=== PATIENT | male | born 1940 | race Two or more races ===

== ENCOUNTER 2023-05-14 13:36 | Inpatient (IN) | payer MEDICARE ==
[~2023-05-14] VITALS: Ht 190.5 cm; Wt 88.0 kg
[2023-05-14] MEDS ORDERED: LORAZEPAM 1 MG TABLET ONE (20:49)
[2023-05-14] MEDS ORDERED: LORAZEPAM 1 MG TABLET PO ONE (21:00)
[2023-05-14] MEDS ORDERED: ONDANSETRON HCL/PF 4 MG/2 ML VIAL ONE (21:07)
[2023-05-14 21:25] LABS: BASOPHILS % (AUTO) 0.3 % (0.0-2.0); EOSINOPHILS % (AUTO) 0.2 % (0.0-6.0); HEMATOCRIT 40 % (39-51); HEMOGLOBIN 13.1 g/dL (13.5-17.5); LYMPHOCYTES # (AUTO) 1.7 K/uL (0.8-4.8); LYMPHOCYTES % (AUTO) 23.9 % (20.0-44.0); MEAN CORPUSCULAR HEMOGLOBIN 36 PG (26.0-33.0); MEAN CORPUSCULAR HGB CONC 33 g/dl (31.0-36.0); MEAN CORPUSCULAR VOLUME 109 fL (80-96); MONOCYTES # (AUTO) 0.8 K/uL (0.1-1.30); MONOCYTES % (AUTO) 11.7 % (2.0-12.0); NEUTROPHILS # (AUTO) 4.5 K/uL (1.8-8.9); NEUTROPHILS % (AUTO) 63.9 % (43.0-81.0); PLATELET COUNT (AUTO) 149 K/uL (150-450); RED BLOOD CELL COUNT(AUTO) 3.64 MIL/uL (4.5-6.0); WHITE BLOOD COUNT (AUTO) 7.1 K/uL (4.3-11.0)
[2023-05-14] MEDS ORDERED: IV NS 0.9% 1,000 ML IV ONE (21:30)
[2023-05-14] MEDS ORDERED: LORAZEPAM INJ 2 MG/ML VIAL IV ONE (21:30)
[2023-05-14] MEDS ORDERED: ONDANSETRON HCL/PF - ER 4 MG/2 ML VIAL IV ONE (21:30)
[2023-05-14] MEDS ORDERED: LORAZEPAM INJ 2 MG/ML VIAL ONE (21:35)
[2023-05-14 21:38] LABS: CALCIUM, SERUM 8.6 mg/dL (8.5-10.1); CARBON DIOXIDE 21 mmol/L (21-32); CHLORIDE 97 mmol/L (98-107); CREATININE 0.8 mg/dL (0.6-1.3); GLUCOSE 77 mg/dL (74-106); POTASSIUM 3.7 mmol/L (3.5-5.1); SODIUM SERUM 142 mmol/L (136-145); UREA NITROGEN, BLOOD 17 mg/dL (7-18)
[2023-05-14 21:43] LABS: ALANINE AMINOTRANSFERASE 63 U/L (12-78); ALBUMIN 3.6 g/dL (3.4-5.0); ALCOHOL, BLOOD 220 mg/dL (0-10); ALKALINE PHOSPHATASE 56 U/L (46-116); ASPARTATE AMINOTRANSFERASE 150 U/L (15-37); BILIRUBIN,DIRECT 0.8 mg/dL (0.0-0.2); BILIRUBIN,TOTAL 1.5 mg/dL (0.2-1.0); TOTAL PROTEIN, SERUM 7.4 g/dL (6.4-8.2)
[2023-05-14] MEDS ORDERED: METOCLOPRAMIDE HCL 10 MG/2 ML VIAL ONE (21:48)
[2023-05-14 21:52] LABS: ACETAMINOPHEN <10 ug/ml (10-30); SALICYLATE 1.4 mg/dL (2.8-20.0)
[2023-05-14] MEDS ORDERED: CEFTRIAXONE 1GM BAG (ER ONLY) 50 ML IV ONE (21:55)
[2023-05-14] MEDS ORDERED: AZITHROMYCIN 500 MG VIAL ONE (21:56)
[2023-05-14] MEDS ORDERED: CEFTRIAXONE 1GM BAG (ER ONLY) 1 GM/50 ML PIGGYBACK IV ONE (22:00)
[2023-05-14] MEDS ORDERED: AZITHROMYCIN 500 MG in IV D5W 250 ML IV ONE (22:00)
[2023-05-14] MEDS ORDERED: METOCLOPRAMIDE HCL 10 MG/2 ML VIAL IV ONE (22:00)
[2023-05-14 22:14] LABS: EOSINOPHILS % (MANUAL) 1 % (0-4); LYMPHOCYTES % (MANUAL) 29 % (16-48); MONOCYTES % (MANUAL) 11 % (0-11.0); NEUTROPHILS % (MANUAL) 59 (42-76); PLATELET ESTIMATE ADEQUATE
[2023-05-14 23:10] LABS: APPEARANCE,URINE CLEAR (CLEAR); BILIRUBIN,URINE 1+ (NEGATIVE); BLOOD, URINE 2+ Ery/uL (NEGATIVE); COLOR,URINE YELLOW (YELLOW); KETONES,URINE 2+ mg/dL (NEGATIVE); LEUKOCYTE ESTERASE ,URINE NEGATIVE (NEGATIVE); NITRITE, URINE NEGATIVE (NEGATIVE); PROTEIN,URINE 3+ mg/dl (NEGATIVE); UGLUCOSE NEGATIVE (NEGATIVE)
[2023-05-14 23:17] LABS: RBC,URINE 21-50 /HPF (0-2); WBC,URINE 0-2 /HPF (0-3)
[2023-05-14 23:18] LABS: ADD URINE CULTURE NO; BACTERIA,URINE 1+ /HPF (None Seen); SQUAMOUS EPITHELIAL CELL,UR 0-2 /HPF (None Seen)
[2023-05-14 23:19] LABS: COARSE GRANULAR CASTS,URINE Rare /LPF (None Seen)
[2023-05-14 23:50] LABS: AMPHETAMINE, URINE NEGATIVE (NEGATIVE); BARBITURATE, URINE NEGATIVE (NEGATIVE); BENZODIAZEPINE, URINE NEGATIVE (NEGATIVE); CANNABINOID, URINE NEGATIVE (NEGATIVE); COCCAINE, URINE NEGATIVE (NEGATIVE); OPIATE, URINE NEGATIVE (NEGATIVE); PHENCYCLIDINE SCREEN,URINE NEGATIVE (NEGATIVE)
[2023-05-15] MEDS ORDERED: IV NS 0.9% 1,000 ML BAG IV ONE ×2 (06:30→09:30)
[2023-05-15] MEDS ORDERED: Thiamine 100 MG in IV D5W 50 ML IV ONE (08:00)
[2023-05-15] MEDS ORDERED: LORAZEPAM INJ 2 MG/ML VIAL IV ONE (08:00)
[2023-05-15] MEDS ORDERED: LORAZEPAM INJ 2 MG/ML VIAL ONE (08:25)
[2023-05-15] MEDS ORDERED: OCTREOTIDE 50 MCG/ML AMPUL IV ONE (08:30)
[2023-05-15] MEDS ORDERED: PANTOPRAZOLE 80 MG in IV NS 0.9% 100 ML IV ONE (08:30)
[2023-05-15] MEDS ORDERED: CLOP75TA15 PO (08:35)
[2023-05-15] MEDS ORDERED: SIMV-46 PO (08:35)
[2023-05-15] MEDS ORDERED: TAMS-12 PO (08:35)
[2023-05-15] MEDS ORDERED: AMLO-213 PO (08:35)
[2023-05-15] MEDS ORDERED: IV NS 0.9% 500 ML IV ONE ×2 (09:00→11:30)
[2023-05-15 09:15] LABS: INR 1.03 (0.91-1.10); PROTHROMBIN TIME 10.9 SECS (9.2-11.1)
[2023-05-15 09:22] LABS: LACTIC ACID 5.8 mmol/L (0.4-2.0)
[2023-05-15] MEDS ORDERED: PIPERACILLIN /TAZOBACTAM 3.375 G in IV D5W 50 ML IV ONE (09:30)
[2023-05-15] MEDS ORDERED: OCTREOTIDE 100 MCG/ML VIAL ONE (11:19)
[2023-05-15] MEDS ORDERED: ACETAMINOPHEN 325 MG TABLET PO PRN (13:30)
[2023-05-15] MEDS ORDERED: LORAZEPAM INJ 2 MG/ML VIAL IV PRN (13:30)
[2023-05-15] MEDS ORDERED: Folic acid 1 MG in IV D5W 50 ML IV SCH (14:00)
[2023-05-15] MEDS ORDERED: Thiamine 100 MG in IV D5W 50 ML IV SCH (14:00)
[2023-05-15] MEDS ORDERED: ONDANSETRON HCL/PF 4 MG/2 ML VIAL IV PRN (14:00)
[2023-05-15 16:00] VITALS: BP 105/81; TEMP 98.2; O2SAT 95
[2023-05-15] MEDS: PIPERACILLIN /TAZOBACTAM 3.375 G in IV D5W 100 ML IV SCH (17:07)
[2023-05-15] MEDS: SIMVASTATIN 20 MG TABLET PO SCH (17:10)
[2023-05-15] MEDS: METOPROLOL TARTRATE 25 MG TABLET PO SCH (17:10)
[2023-05-15] MEDS ORDERED: PIPERACILLIN /TAZOBACTAM 3.375 G in IV D5W 50 ML IV SCH (18:00)
[2023-05-15 20:00] VITALS: BP 120/80; TEMP 97.5; O2SAT 91
[2023-05-15] MEDS: IV D5/ 0.9% NACL 1,000 ML IV PRN (20:33)
[2023-05-16] VITALS: BP 102/77; TEMP 98.2; O2SAT 91
[2023-05-16] MEDS: PIPERACILLIN /TAZOBACTAM 3.375 G in IV D5W 100 ML IV SCH ×3 (00:56→17:46)
[2023-05-16 05:49] VITALS: BP 120/87; TEMP 98.6; O2SAT 92
[2023-05-16 07:18] LABS: BASOPHILS % (AUTO) 0.1 % (0.0-2.0); HEMATOCRIT 32 % (39-51); HEMOGLOBIN 10.8 g/dL (13.5-17.5); LYMPHOCYTES # (AUTO) 0.3 K/uL (0.8-4.8); LYMPHOCYTES % (AUTO) 2.1 % (20.0-44.0); MEAN CORPUSCULAR HEMOGLOBIN 36 PG (26.0-33.0); MEAN CORPUSCULAR HGB CONC 33 g/dl (31.0-36.0); MEAN CORPUSCULAR VOLUME 109 fL (80-96); MONOCYTES # (AUTO) 0.6 K/uL (0.1-1.30); MONOCYTES % (AUTO) 3.7 % (2.0-12.0); NEUTROPHILS # (AUTO) 15.9 K/uL (1.8-8.9); NEUTROPHILS % (AUTO) 94.1 % (43.0-81.0); PLATELET COUNT (AUTO) 93 K/uL (150-450); RED BLOOD CELL COUNT(AUTO) 2.97 MIL/uL (4.5-6.0); WHITE BLOOD COUNT (AUTO) 16.9 K/uL (4.3-11.0)
[2023-05-16 07:32] LABS: ALANINE AMINOTRANSFERASE 58 U/L (12-78); ALBUMIN 2.8 g/dL (3.4-5.0); ALKALINE PHOSPHATASE 33 U/L (46-116); ASPARTATE AMINOTRANSFERASE 146 U/L (15-37); BILIRUBIN,TOTAL 2.1 mg/dL (0.2-1.0); CALCIUM, SERUM 7.8 mg/dL (8.5-10.1); CARBON DIOXIDE 23 mmol/L (21-32); CHLORIDE 104 mmol/L (98-107); CREATININE 1.6 mg/dL (0.6-1.3); GLUCOSE 168 mg/dL (74-106); MAGNESIUM 1.3 mg/dL (1.8-2.4); POTASSIUM 3.9 mmol/L (3.5-5.1); SODIUM SERUM 145 mmol/L (136-145); TOTAL PROTEIN, SERUM 6.2 g/dL (6.4-8.2); UREA NITROGEN, BLOOD 39 mg/dL (7-18)
[2023-05-16 07:41] LABS: LACTIC ACID 3.3 mmol/L (0.4-2.0)
[2023-05-16 08:00] VITALS: BP 113/95; TEMP 98; O2SAT 92
[2023-05-16] MEDS: Magnesium 1GM/D5W 100ML PREMIX 100 ML IV SCH ×2 (08:21→09:43)
[2023-05-16] MEDS: TAMSULOSIN 0.4 MG CAP.SR.24H PO SCH (08:22)
[2023-05-16] MEDS: METOPROLOL TARTRATE 25 MG TABLET PO SCH ×2 (08:22→17:08)
[2023-05-16] MEDS: FAMOTIDINE (20 MG) 20 MG TABLET PO SCH (08:22)
[2023-05-16] MEDS: CLOPIDOGREL BISULFATE 75 MG TABLET PO SCH (08:22)
[2023-05-16] MEDS: ENOXAPARIN SODIUM 40 MG/0.4 ML DISP.SYRIN SQ SCH (08:26)
[2023-05-16 11:16] LABS: BAND % (MANUAL) 22 % (0.0-5.0); EOSINOPHILS % (MANUAL) 2 % (0-4); LYMPHOCYTES % (MANUAL) 1 % (16-48); METAMYELOCYTES % 1 % (0-0); MONOCYTES % (MANUAL) 1 % (0-11.0); NEUTROPHILS % (MANUAL) 73 (42-76)
[2023-05-16 11:17] LABS: PLATELET ESTIMATE DECREASED
[2023-05-16 12:00] VITALS: BP 116/80; TEMP 98.8; O2SAT 92
[2023-05-16] MEDS: THIAMINE HCL 100 MG TABLET PO SCH (13:15)
[2023-05-16] MEDS: FOLIC ACID 1 MG TABLET PO SCH (13:16)
[2023-05-16 16:00] VITALS: BP 145/98; TEMP 97.2; O2SAT 92
[2023-05-16] MEDS: IV D5/ 0.9% NACL 1,000 ML IV PRN (17:00)
[2023-05-16] MEDS: SIMVASTATIN 20 MG TABLET PO SCH (17:51)
[2023-05-16 20:00] VITALS: BP 133/92; TEMP 97.7; O2SAT 94
[2023-05-17] VITALS: BP 136/96; TEMP 97.7; O2SAT 94
[2023-05-17] MEDS: PIPERACILLIN /TAZOBACTAM 3.375 G in IV D5W 100 ML IV SCH ×3 (00:46→16:30)
[2023-05-17 04:00] VITALS: BP 148/101; TEMP 97.2; O2SAT 94
[2023-05-17 06:58] LABS: BASOPHILS % (AUTO) 0.2 % (0.0-2.0); HEMATOCRIT 33 % (39-51); HEMOGLOBIN 10.9 g/dL (13.5-17.5); LYMPHOCYTES # (AUTO) 0.4 K/uL (0.8-4.8); LYMPHOCYTES % (AUTO) 2.3 % (20.0-44.0); MEAN CORPUSCULAR HEMOGLOBIN 36 PG (26.0-33.0); MEAN CORPUSCULAR HGB CONC 33 g/dl (31.0-36.0); MEAN CORPUSCULAR VOLUME 109 fL (80-96); MONOCYTES # (AUTO) 0.7 K/uL (0.1-1.30); MONOCYTES % (AUTO) 3.7 % (2.0-12.0); NEUTROPHILS % (AUTO) 93.8 % (43.0-81.0); PLATELET COUNT (AUTO) 79 K/uL (150-450); RED CELL DISTRIBUTION WIDTH 18.2 % (11.5-15.0); WHITE BLOOD COUNT (AUTO) 19.2 K/uL (4.3-11.0)
[2023-05-17 07:12] LABS: CARBON DIOXIDE 28 mmol/L (21-32); CHLORIDE 109 mmol/L (98-107); CREATININE 1.1 mg/dL (0.6-1.3); GLUCOSE 158 mg/dL (74-106); POTASSIUM 3.4 mmol/L (3.5-5.1); SODIUM SERUM 147 mmol/L (136-145); UREA NITROGEN, BLOOD 31 mg/dL (7-18)
[2023-05-17 07:13] LABS: MAGNESIUM 1.7 mg/dL (1.8-2.4)
[2023-05-17 08:00] VITALS: BP 134/92; TEMP 99.1; O2SAT 99
[2023-05-17] MEDS ORDERED: POTASSIUM CHLORIDE 20 MEQ TAB.PRT.SR PO ONE (08:30)
[2023-05-17] MEDS: ENOXAPARIN SODIUM 40 MG/0.4 ML DISP.SYRIN SQ SCH (09:00)
[2023-05-17] MEDS: Magnesium 1GM/D5W 100ML PREMIX 100 ML IV SCH ×2 (09:29→12:08)
[2023-05-17] MEDS: TAMSULOSIN 0.4 MG CAP.SR.24H PO SCH (09:30)
[2023-05-17] MEDS: FAMOTIDINE (20 MG) 20 MG TABLET PO SCH (09:30)
[2023-05-17] MEDS: CLOPIDOGREL BISULFATE 75 MG TABLET PO SCH (09:31)
[2023-05-17] MEDS: METOPROLOL TARTRATE 25 MG TABLET PO SCH ×2 (09:32→16:34)
[2023-05-17] MEDS: Z GUARD REMEDY 4 OZ OINT TP SCH (10:00)
[2023-05-17] MEDS ORDERED: Z GUARD REMEDY 4 OZ OINT TP PRN (10:00)
[2023-05-17 11:24] LABS: BILIRUBIN,DIRECT 1.1 mg/dL (0.0-0.2)
[2023-05-17 12:00] VITALS: BP 147/107; TEMP 98.7; O2SAT 97
[2023-05-17] MEDS ORDERED: POTASSIUM CHLORIDE 20 MEQ POWDER PACKET PO ONE (12:00)
[2023-05-17] MEDS: IV D5/ 0.9% NACL 1,000 ML IV PRN (12:18)
[2023-05-17 12:22] LABS: BAND % (MANUAL) 1 % (0.0-5.0); LYMPHOCYTES % (MANUAL) 14 % (16-48); NEUTROPHILS % (MANUAL) 69 (42-76)
[2023-05-17 12:23] LABS: EOSINOPHILS % (MANUAL) 4 % (0-4); MONOCYTES % (MANUAL) 12 % (0-11.0)
[2023-05-17 12:24] LABS: PLATELET ESTIMATE ADEQUATE
[2023-05-17 16:00] VITALS: BP 136/97; TEMP 97.9; O2SAT 95
[2023-05-17] MEDS: THIAMINE HCL 100 MG TABLET PO SCH (16:30)
[2023-05-17] MEDS: FOLIC ACID 1 MG TABLET PO SCH (16:30)
[2023-05-17] MEDS: SIMVASTATIN 20 MG TABLET PO SCH (18:37)
[2023-05-17 22:00] VITALS: BP 128/78; TEMP 97.3; O2SAT 93
[2023-05-18] VITALS (77 sets, daily range): BP systolic 76–177; BP diastolic 56–129; TEMP 97.2–98.6; O2SAT 92–100
[2023-05-18] MEDS: PIPERACILLIN /TAZOBACTAM 3.375 G in IV D5W 100 ML IV SCH ×4 (01:02→16:06)
[2023-05-18] MEDS: PROPOFOL 100 ML IV PRN ×5 (04:27→22:24)
[2023-05-18] MEDS: IV D5/ 0.9% NACL 1,000 ML IV PRN ×2 (05:24→16:06)
[2023-05-18 05:25] LABS: ABG BASE EXCESS 2.2 mmol/L; ABG PCO2 51.9 mmHg (35.0-45.0); ABG PH 7.357 (7.350-7.450); ABG PO2 77.7 mmHg (75.0-100.0); ABG TOTAL HEMOGLOBIN 11.7 G/dL (13.5-18.0); AaDO2 583.4 mmHg; COHb 0.2 % (0.5-1.5); MetHb 0.1 % (0.0-1.5); O2Hb 94.7 % (94.0-97.0); PEEP,BG 5 cm H2O; SITE, ABG Right Brachial; VT, ABG 500 mL
[2023-05-18 05:35] LABS: CALCIUM, SERUM 8.3 mg/dL (8.5-10.1); CARBON DIOXIDE 26 mmol/L (21-32); CHLORIDE 111 mmol/L (98-107); CREATININE 0.9 mg/dL (0.6-1.3); GLUCOSE 173 mg/dL (74-106); MAGNESIUM 2.2 mg/dL (1.8-2.4); POTASSIUM 4.3 mmol/L (3.5-5.1); SODIUM SERUM 147 mmol/L (136-145); UREA NITROGEN, BLOOD 27 mg/dL (7-18)
[2023-05-18 05:44] LABS: BASOPHILS # (AUTO) 0.1 K/uL (0.0-0.2); BASOPHILS % (AUTO) 0.4 % (0.0-2.0); HEMATOCRIT 33 % (39-51); HEMOGLOBIN 10.7 g/dL (13.5-17.5); LYMPHOCYTES # (AUTO) 0.3 K/uL (0.8-4.8); LYMPHOCYTES % (AUTO) 1.5 % (20.0-44.0); MEAN CORPUSCULAR HEMOGLOBIN 36 PG (26.0-33.0); MEAN CORPUSCULAR HGB CONC 32 g/dl (31.0-36.0); MEAN CORPUSCULAR VOLUME 112 fL (80-96); MONOCYTES # (AUTO) 0.5 K/uL (0.1-1.30); MONOCYTES % (AUTO) 3.1 % (2.0-12.0); NEUTROPHILS # (AUTO) 16.7 K/uL (1.8-8.9); PLATELET COUNT (AUTO) 86 K/uL (150-450); RED BLOOD CELL COUNT(AUTO) 2.95 MIL/uL (4.5-6.0); WHITE BLOOD COUNT (AUTO) 17.6 K/uL (4.3-11.0)
[2023-05-18 06:50] LABS: BAND % (MANUAL) 1 % (0.0-5.0); LYMPHOCYTES % (MANUAL) 1 % (16-48); MONOCYTES % (MANUAL) 4 % (0-11.0); MYELOCYTES % 1 % (0-0); NEUTROPHILS % (MANUAL) 93 (42-76)
[2023-05-18 06:51] LABS: ANISOCYTOSIS 1+; PLATELET ESTIMATE DECREASED
[2023-05-18] MEDS ORDERED: NOREPINEPHRINE 8 MG in IV NS 0.9% 242 ML IV PRN (07:00)
[2023-05-18] MEDS: Z GUARD REMEDY 4 OZ OINT TP SCH (09:00)
[2023-05-18] MEDS: IPRATROPIUM NEB FS 0.5 MG/2.5 ML AMPUL.NEB NEB SCH ×3 (09:00→20:05)
[2023-05-18] MEDS: METOPROLOL TARTRATE 25 MG TABLET PO SCH ×2 (09:00→16:02)
[2023-05-18] MEDS ORDERED: JEVITY 1.2 CAL 1,000 ML BOTTLE GT PRN (09:30)
[2023-05-18] MEDS ORDERED: EPINEPHRINE (1:10,000) SYRINGE 1 MG/10 ML DISP.SYRIN IVP ONE (10:39)
[2023-05-18] MEDS: CLOPIDOGREL BISULFATE 75 MG TABLET PO SCH (14:51)
[2023-05-18] MEDS: FAMOTIDINE (20 MG) 20 MG TABLET PO SCH (14:51)
[2023-05-18] MEDS: FOLIC ACID 1 MG TABLET PO SCH (14:51)
[2023-05-18] MEDS: TAMSULOSIN 0.4 MG CAP.SR.24H PO SCH (14:51)
[2023-05-18] MEDS: THIAMINE HCL 100 MG TABLET PO SCH (14:51)
[2023-05-18] MEDS: SIMVASTATIN 20 MG TABLET PO SCH (18:20)
[2023-05-18 21:00] LABS: ALANINE AMINOTRANSFERASE 80 U/L (12-78); ALBUMIN 2.2 g/dL (3.4-5.0); ALKALINE PHOSPHATASE 57 U/L (46-116); ASPARTATE AMINOTRANSFERASE 160 U/L (15-37); BILIRUBIN,TOTAL 1.6 mg/dL (0.2-1.0); CALCIUM, SERUM 7.8 mg/dL (8.5-10.1); CARBON DIOXIDE 32 mmol/L (21-32); CHLORIDE 111 mmol/L (98-107); CREATININE 0.9 mg/dL (0.6-1.3); GLUCOSE 213 mg/dL (74-106); POTASSIUM 3.3 mmol/L (3.5-5.1); SODIUM SERUM 148 mmol/L (136-145); TOTAL PROTEIN, SERUM 5.3 g/dL (6.4-8.2); UREA NITROGEN, BLOOD 21 mg/dL (7-18)
[2023-05-18 21:02] LABS: IRON, SERUM 51 ug/dl (50-175); TOTAL IRON BINDING CAPACITY 110 ug/dl (250-450)
[2023-05-18 21:36] LABS: CHOLESTEROL 92 mg/dL (<200); FERRITIN 3613 ng/mL (8-388); HDL CHOLESTEROL 46 mg/dL (40-60); LDL 33 mg/dL (0-99); THYROID STIMULATING HORMONE 3.775 uIU/mL (0.358-3.74); TRIGLYCERIDES 126 mg/dL (30-150)
[2023-05-19] VITALS (47 sets, daily range): BP systolic 94–172; BP diastolic 59–133; TEMP 98.3–98.8; O2SAT 96–100
[2023-05-19] MEDS: PIPERACILLIN /TAZOBACTAM 3.375 G in IV D5W 100 ML IV SCH ×3 (01:06→16:04)
[2023-05-19] MEDS: IPRATROPIUM NEB FS 0.5 MG/2.5 ML AMPUL.NEB NEB SCH ×4 (01:22→19:27)
[2023-05-19] MEDS: PROPOFOL 100 ML IV PRN ×2 (02:18→06:09)
[2023-05-19 04:27] LABS: BASOPHILS % (AUTO) 0.1 % (0.0-2.0); EOSINOPHILS % (AUTO) 0.4 % (0.0-6.0); HEMATOCRIT 27 % (39-51); HEMOGLOBIN 9.4 g/dL (13.5-17.5); LYMPHOCYTES # (AUTO) 0.7 K/uL (0.8-4.8); LYMPHOCYTES % (AUTO) 7.3 % (20.0-44.0); MEAN CORPUSCULAR HEMOGLOBIN 38 PG (26.0-33.0); MEAN CORPUSCULAR HGB CONC 35 g/dl (31.0-36.0); MEAN CORPUSCULAR VOLUME 109 fL (80-96); MONOCYTES # (AUTO) 0.6 K/uL (0.1-1.30); NEUTROPHILS # (AUTO) 7.8 K/uL (1.8-8.9); NEUTROPHILS % (AUTO) 85.2 % (43.0-81.0); PLATELET COUNT (AUTO) 75 K/uL (150-450); RED BLOOD CELL COUNT(AUTO) 2.45 MIL/uL (4.5-6.0); RED CELL DISTRIBUTION WIDTH 18.3 % (11.5-15.0); WHITE BLOOD COUNT (AUTO) 9.2 K/uL (4.3-11.0)
[2023-05-19 05:00] LABS: ALANINE AMINOTRANSFERASE 72 U/L (12-78); ALKALINE PHOSPHATASE 56 U/L (46-116); ASPARTATE AMINOTRANSFERASE 138 U/L (15-37); BILIRUBIN,TOTAL 1.5 mg/dL (0.2-1.0); CALCIUM, SERUM 7.7 mg/dL (8.5-10.1); CARBON DIOXIDE 29 mmol/L (21-32); CHLORIDE 112 mmol/L (98-107); CREATININE 0.8 mg/dL (0.6-1.3); GLUCOSE 167 mg/dL (74-106); POTASSIUM 3.2 mmol/L (3.5-5.1); SODIUM SERUM 149 mmol/L (136-145); TOTAL PROTEIN, SERUM 5.1 g/dL (6.4-8.2); UREA NITROGEN, BLOOD 19 mg/dL (7-18)
[2023-05-19] MEDS: IV D5/ 0.9% NACL 1,000 ML IV PRN ×2 (05:27→22:16)
[2023-05-19 07:03] LABS: BAND % (MANUAL) 1 % (0.0-5.0); LYMPHOCYTES % (MANUAL) 6 % (16-48); MONOCYTES % (MANUAL) 7 % (0-11.0); NEUTROPHILS % (MANUAL) 86 (42-76); PLATELET ESTIMATE DECRE
[2023-05-19 07:04] LABS: ANISOCYTOSIS 1+
[2023-05-19] MEDS: FAMOTIDINE (20 MG) 20 MG TABLET PO SCH (08:33)
[2023-05-19] MEDS: METOPROLOL TARTRATE 25 MG TABLET PO SCH ×3 (08:34→16:04)
[2023-05-19] MEDS: TAMSULOSIN 0.4 MG CAP.SR.24H PO SCH (08:34)
[2023-05-19] MEDS: CLOPIDOGREL BISULFATE 75 MG TABLET PO SCH (08:34)
[2023-05-19] MEDS: Z GUARD REMEDY 4 OZ OINT TP SCH (08:52)
[2023-05-19] MEDS: POTASSIUM CL. PREMIX PERIPHER. 50 ML IV SCH ×4 (09:05→12:16)
[2023-05-19 10:29] LABS: ABG BASE EXCESS 3.8 mmol/L; ABG PCO2 35.9 mmHg (35.0-45.0); ABG PH 7.495 (7.350-7.450); ABG PO2 86.1 mmHg (75.0-100.0); ABG TOTAL HEMOGLOBIN 11.8 G/dL (13.5-18.0); AaDO2 85.6 mmHg; COHb 0.3 % (0.5-1.5); MetHb 0.3 % (0.0-1.5); O2Hb 96.4 % (94.0-97.0); PEEP,BG 5 cm H2O; SITE, ABG Right Radial; VENT MODE, BG SIMV 4/ PS 15; VT, ABG 500 mL
[2023-05-19] MEDS: FOLIC ACID 1 MG TABLET PO SCH (14:01)
[2023-05-19] MEDS: THIAMINE HCL 100 MG TABLET PO SCH (14:02)
[2023-05-19] MEDS: SIMVASTATIN 20 MG TABLET PO SCH (17:13)
[2023-05-19] MEDS ORDERED: CLONIDINE HCL 0.1 MG TABLET NG PRN (23:00)
[2023-05-20] VITALS (51 sets, daily range): BP systolic 88–189; BP diastolic 60–123; TEMP 97–98.9; O2SAT 92–100
[2023-05-20] MEDS: IPRATROPIUM NEB FS 0.5 MG/2.5 ML AMPUL.NEB NEB SCH ×4 (01:23→19:13)
[2023-05-20] MEDS: PIPERACILLIN /TAZOBACTAM 3.375 G in IV D5W 100 ML IV SCH ×3 (01:36→17:45)
[2023-05-20 05:02] LABS: EOSINOPHILS % (AUTO) 0.2 % (0.0-6.0); HEMATOCRIT 28 % (39-51); HEMOGLOBIN 9.4 g/dL (13.5-17.5); LYMPHOCYTES # (AUTO) 0.5 K/uL (0.8-4.8); LYMPHOCYTES % (AUTO) 5.4 % (20.0-44.0); MEAN CORPUSCULAR HEMOGLOBIN 37 PG (26.0-33.0); MEAN CORPUSCULAR HGB CONC 34 g/dl (31.0-36.0); MEAN CORPUSCULAR VOLUME 109 fL (80-96); MONOCYTES # (AUTO) 1.3 K/uL (0.1-1.30); MONOCYTES % (AUTO) 13.3 % (2.0-12.0); NEUTROPHILS # (AUTO) 7.8 K/uL (1.8-8.9); NEUTROPHILS % (AUTO) 81.1 % (43.0-81.0); PLATELET COUNT (AUTO) 78 K/uL (150-450); RED BLOOD CELL COUNT(AUTO) 2.56 MIL/uL (4.5-6.0); RED CELL DISTRIBUTION WIDTH 18.2 % (11.5-15.0); WHITE BLOOD COUNT (AUTO) 9.6 K/uL (4.3-11.0)
[2023-05-20 05:20] LABS: ALANINE AMINOTRANSFERASE 62 U/L (12-78); ALKALINE PHOSPHATASE 71 U/L (46-116); ASPARTATE AMINOTRANSFERASE 102 U/L (15-37); BILIRUBIN,TOTAL 1.8 mg/dL (0.2-1.0); CALCIUM, SERUM 7.9 mg/dL (8.5-10.1); CARBON DIOXIDE 30 mmol/L (21-32); CHLORIDE 112 mmol/L (98-107); CREATININE 0.8 mg/dL (0.6-1.3); GLUCOSE 155 mg/dL (74-106); MAGNESIUM 1.3 mg/dL (1.8-2.4); POTASSIUM 3.2 mmol/L (3.5-5.1); SODIUM SERUM 151 mmol/L (136-145); TOTAL PROTEIN, SERUM 5.2 g/dL (6.4-8.2); UREA NITROGEN, BLOOD 13 mg/dL (7-18)
[2023-05-20] MEDS ORDERED: DC PROPOFOL WHEN EXTUBATED XX PRN (07:00)
[2023-05-20] MEDS ORDERED: TAMSULOSIN 0.4 MG CAP.SR.24H NG SCH (07:17)
[2023-05-20] MEDS ORDERED: FOLIC ACID 1 MG TABLET NG SCH (07:17)
[2023-05-20] MEDS ORDERED: CLOPIDOGREL BISULFATE 75 MG TABLET NG SCH (07:18)
[2023-05-20] MEDS ORDERED: THIAMINE HCL 100 MG TABLET NG SCH (07:18)
[2023-05-20] MEDS ORDERED: FAMOTIDINE (20 MG) 20 MG TABLET NG SCH (07:18)
[2023-05-20] MEDS ORDERED: METOPROLOL TARTRATE 25 MG TABLET NG SCH (07:18)
[2023-05-20] MEDS ORDERED: SIMVASTATIN 20 MG TABLET NG SCH (07:19)
[2023-05-20] MEDS ORDERED: ACETAMINOPHEN 650 MG/20.3 ML UDC NG PRN (07:30)
[2023-05-20] MEDS ORDERED: POTASSIUM CHLORIDE 20 MEQ POWDER PACKET NG ONE (08:00)
[2023-05-20 08:14] LABS: LYMPHOCYTES % (MANUAL) 1 % (16-48); MONOCYTES % (MANUAL) 18 % (0-11.0); MYELOCYTES % 3 % (0-0); NEUTROPHILS % (MANUAL) 78 (42-76); PLATELET ESTIMATE DECREASED
[2023-05-20 08:15] LABS: ANISOCYTOSIS 1+
[2023-05-20] MEDS: Magnesium 1GM/D5W 100ML PREMIX 100 ML IV SCH ×4 (08:24→11:50)
[2023-05-20] MEDS: POTASSIUM CL. PREMIX PERIPHER. 50 ML IV SCH ×3 (08:58→11:50)
[2023-05-20] MEDS ORDERED: LABETALOL 20 MG/4 ML VIAL IV PRN ×2 (09:00)
[2023-05-20] MEDS: Z GUARD REMEDY 4 OZ OINT TP SCH (11:08)
[2023-05-20] MEDS ORDERED: CLONIDINE HCL 0.1 MG TABLET PO PRN (15:00)
[2023-05-20] MEDS ORDERED: FOLIC ACID 1 MG TABLET PO SCH (15:00)
[2023-05-20] MEDS ORDERED: PHARMACY TO CHANGE GT/NG MEDS TO PO XX PRN (15:00)
[2023-05-20] MEDS ORDERED: THIAMINE HCL 100 MG TABLET PO SCH (15:01)
[2023-05-20] MEDS ORDERED: METOPROLOL TARTRATE 25 MG TABLET PO SCH (15:01)
[2023-05-20] MEDS ORDERED: ACETAMINOPHEN 650 MG/20.3 ML UDC PO PRN (15:02)
[2023-05-20] MEDS ORDERED: SIMVASTATIN 20 MG TABLET PO SCH (15:02)
[2023-05-20] MEDS: SIMVASTATIN 20 MG TABLET PO SCH (21:41)
[2023-05-20] MEDS: METOPROLOL TARTRATE 25 MG TABLET PO SCH (21:42)
[2023-05-21] VITALS (25 sets, daily range): BP systolic 138–168; BP diastolic 78–109; TEMP 97.2–99.5; O2SAT 89–100
[2023-05-21] MEDS: PIPERACILLIN /TAZOBACTAM 3.375 G in IV D5W 100 ML IV SCH ×3 (00:35→16:45)
[2023-05-21] MEDS: IPRATROPIUM NEB FS 0.5 MG/2.5 ML AMPUL.NEB NEB SCH ×5 (01:31→19:05)
[2023-05-21 05:36] LABS: CALCIUM, SERUM 8.5 mg/dL (8.5-10.1); CARBON DIOXIDE 30 mmol/L (21-32); CHLORIDE 107 mmol/L (98-107); CREATININE 0.8 mg/dL (0.6-1.3); GLUCOSE 129 mg/dL (74-106); MAGNESIUM 1.7 mg/dL (1.8-2.4); POTASSIUM 3.3 mmol/L (3.5-5.1); SODIUM SERUM 144 mmol/L (136-145); UREA NITROGEN, BLOOD 11 mg/dL (7-18)
[2023-05-21 08:06] LABS: BASOPHILS % (AUTO) 0.3 % (0.0-2.0); EOSINOPHILS # (AUTO) 0.1 K/uL (0.0-0.7); EOSINOPHILS % (AUTO) 1.5 % (0.0-6.0); HEMATOCRIT 28 % (39-51); HEMOGLOBIN 9.4 g/dL (13.5-17.5); LYMPHOCYTES # (AUTO) 0.8 K/uL (0.8-4.8); LYMPHOCYTES % (AUTO) 12.7 % (20.0-44.0); MEAN CORPUSCULAR HEMOGLOBIN 37 PG (26.0-33.0); MEAN CORPUSCULAR HGB CONC 34 g/dl (31.0-36.0); MEAN CORPUSCULAR VOLUME 110 fL (80-96); MONOCYTES # (AUTO) 1.3 K/uL (0.1-1.30); MONOCYTES % (AUTO) 20.7 % (2.0-12.0); NEUTROPHILS # (AUTO) 4.1 K/uL (1.8-8.9); NEUTROPHILS % (AUTO) 64.8 % (43.0-81.0); PLATELET COUNT (AUTO) 100 K/uL (150-450); RED BLOOD CELL COUNT(AUTO) 2.57 MIL/uL (4.5-6.0); RED CELL DISTRIBUTION WIDTH 18.6 % (11.5-15.0); WHITE BLOOD COUNT (AUTO) 6.4 K/uL (4.3-11.0)
[2023-05-21] MEDS: CLOPIDOGREL BISULFATE 75 MG TABLET PO SCH (08:18)
[2023-05-21] MEDS: FAMOTIDINE (20 MG) 20 MG TABLET PO SCH (08:18)
[2023-05-21] MEDS: FOLIC ACID 1 MG TABLET PO SCH (08:19)
[2023-05-21] MEDS: METOPROLOL TARTRATE 25 MG TABLET PO SCH ×2 (08:19→21:22)
[2023-05-21] MEDS: TAMSULOSIN 0.4 MG CAP.SR.24H PO SCH (08:19)
[2023-05-21] MEDS: Magnesium 1GM/D5W 100ML PREMIX 100 ML IV SCH ×2 (08:20→09:41)
[2023-05-21] MEDS: THIAMINE HCL 100 MG TABLET PO SCH (08:20)
[2023-05-21] MEDS: Z GUARD REMEDY 4 OZ OINT TP SCH (08:21)
[2023-05-21] MEDS ORDERED: POTASSIUM CHLORIDE 20 MEQ POWDER PACKET PO SCH (08:30)
[2023-05-21] MEDS: SIMVASTATIN 20 MG TABLET PO SCH (22:18)
[2023-05-22] VITALS (14 sets, daily range): BP systolic 113–146; BP diastolic 84–116; TEMP 97.9–99; O2SAT 92–100
[2023-05-22] MEDS: PIPERACILLIN /TAZOBACTAM 3.375 G in IV D5W 100 ML IV SCH ×3 (00:19→16:15)
[2023-05-22] MEDS: IPRATROPIUM NEB FS 0.5 MG/2.5 ML AMPUL.NEB NEB SCH ×4 (00:31→20:04)
[2023-05-22 07:21] LABS: EOSINOPHILS # (AUTO) 0.1 K/uL (0.0-0.7); EOSINOPHILS % (AUTO) 1.5 % (0.0-6.0); HEMATOCRIT 29 % (39-51); LYMPHOCYTES # (AUTO) 0.7 K/uL (0.8-4.8); LYMPHOCYTES % (AUTO) 10.8 % (20.0-44.0); MEAN CORPUSCULAR HEMOGLOBIN 37 PG (26.0-33.0); MEAN CORPUSCULAR HGB CONC 34 g/dl (31.0-36.0); MEAN CORPUSCULAR VOLUME 107 fL (80-96); MONOCYTES # (AUTO) 1.6 K/uL (0.1-1.30); MONOCYTES % (AUTO) 24.8 % (2.0-12.0); NEUTROPHILS # (AUTO) 4.1 K/uL (1.8-8.9); NEUTROPHILS % (AUTO) 62.9 % (43.0-81.0); PLATELET COUNT (AUTO) 143 K/uL (150-450); WHITE BLOOD COUNT (AUTO) 6.5 K/uL (4.3-11.0)
[2023-05-22 07:50] LABS: CALCIUM, SERUM 8.9 mg/dL (8.5-10.1); CREATININE 0.9 mg/dL (0.6-1.3); POTASSIUM 3.2 mmol/L (3.5-5.1)
[2023-05-22] MEDS: Z GUARD REMEDY 4 OZ OINT TP SCH (08:03)
[2023-05-22] MEDS ORDERED: APIX5TAB PO (08:16)
[2023-05-22] MEDS ORDERED: METO50TA7 PO (08:16)
[2023-05-22] MEDS ORDERED: DAPA5TAB PO (08:16)
[2023-05-22] MEDS ORDERED: AMOX-430 PO (08:16)
[2023-05-22] MEDS: METOPROLOL SUCCINATE 50 MG TAB.SR.24H PO SCH (08:41)
[2023-05-22] MEDS: CLOPIDOGREL BISULFATE 75 MG TABLET PO SCH (08:42)
[2023-05-22] MEDS: FOLIC ACID 1 MG TABLET PO SCH (08:42)
[2023-05-22] MEDS: APIXABAN 5 MG TABLET PO SCH ×2 (08:42→16:16)
[2023-05-22] MEDS: FAMOTIDINE (20 MG) 20 MG TABLET PO SCH (08:42)
[2023-05-22] MEDS: THIAMINE HCL 100 MG TABLET PO SCH (08:42)
[2023-05-22] MEDS: TAMSULOSIN 0.4 MG CAP.SR.24H PO SCH (08:42)
[2023-05-22] MEDS ORDERED: METOPROLOL TARTRATE 25 MG TABLET PO SCH (09:00)
[2023-05-22] MEDS ORDERED: POTASSIUM CHLORIDE 20 MEQ POWDER PACKET PO ONE (10:00)
[2023-05-22 12:29] LABS: ANISOCYTOSIS 1+; BAND % (MANUAL) 1 % (0.0-5.0); EOSINOPHILS % (MANUAL) 3 % (0-4); LYMPHOCYTES % (MANUAL) 13 % (16-48); MONOCYTES % (MANUAL) 20 % (0-11.0); NEUTROPHILS % (MANUAL) 63 (42-76); PLATELET ESTIMATE DECREASED
[2023-05-22] MEDS ORDERED: CALCIUM CARBONATE 500 MG TAB.CHEW PO PRN ×2 (13:00)
[2023-05-22] MEDS: SIMVASTATIN 20 MG TABLET PO SCH (21:01)
[2023-05-23] VITALS (9 sets, daily range): BP systolic 132–175; BP diastolic 96–116; TEMP 97.7–98.6; O2SAT 97–100
[2023-05-23] MEDS: PIPERACILLIN /TAZOBACTAM 3.375 G in IV D5W 100 ML IV SCH ×3 (01:09→17:10)
[2023-05-23] MEDS: IPRATROPIUM NEB FS 0.5 MG/2.5 ML AMPUL.NEB NEB SCH ×2 (02:16→07:35)
[2023-05-23] MEDS: METOPROLOL SUCCINATE 50 MG TAB.SR.24H PO SCH (08:32)
[2023-05-23] MEDS: FAMOTIDINE (20 MG) 20 MG TABLET PO SCH (08:32)
[2023-05-23] MEDS: FOLIC ACID 1 MG TABLET PO SCH (08:32)
[2023-05-23] MEDS: CLOPIDOGREL BISULFATE 75 MG TABLET PO SCH (08:32)
[2023-05-23] MEDS: TAMSULOSIN 0.4 MG CAP.SR.24H PO SCH (08:33)
[2023-05-23] MEDS: APIXABAN 5 MG TABLET PO SCH ×2 (08:33→17:10)
[2023-05-23] MEDS: THIAMINE HCL 100 MG TABLET PO SCH (08:33)
[2023-05-23] MEDS: Z GUARD REMEDY 4 OZ OINT TP SCH (08:34)
[2023-05-23] MEDS ORDERED: LOSA50TA39 PO (09:27)
[2023-05-23] MEDS ORDERED: METO50TA7 PO (09:27)
[2023-05-23] MEDS ORDERED: LOSARTAN POTASSIUM 50 MG TABLET PO SCH (09:30)
[2023-05-23] MEDS ORDERED: METOPROLOL SUCCINATE 25 MG TAB.SR.24H PO ONE (09:30)
[2023-05-24] MEDS ORDERED: METOPROLOL SUCCINATE 50 MG TAB.SR.24H PO SCH (09:00)
== END 2023-05-23 19:12 | DRG 871 ==
LOC: ER 13:56 → TRANSITION 05-15 13:51 → MEDSG1 05-15 15:37 → TELE1 05-15 16:01 → ICU 05-18 03:46 → TELE1 05-21 15:54
PROVIDERS: ADMIT Internal Medicine; ATTEND Internal Medicine
PROC: 5A1945Z Respiratory Ventilation, 24-96 Consecutive Hours (ICD-10-PCS; principal; 2023-05-18)
PROC: 5A2204Z Restoration of Cardiac Rhythm, Single (ICD-10-PCS; 2023-05-18)
PROC: 0BH17EZ Insertion of Endotracheal Airway into Trachea, Via Natural or Artificial Opening (ICD-10-PCS; 2023-05-18)
PROC: 02HV33Z Insertion of Infusion Device into Superior Vena Cava, Percutaneous Approach (ICD-10-PCS; 2023-05-18)
PROC: B548ZZA Ultrasonography of Superior Vena Cava, Guidance (ICD-10-PCS; 2023-05-18)
DX: A41.9 Sepsis, unspecified organism (principal); I21.A1 Myocardial infarction type 2; J69.0 Pneumonitis due to inhalation of food and vomit; J96.01 Acute respiratory failure with hypoxia; N17.0 Acute kidney failure with tubular necrosis; R65.21 Severe sepsis with septic shock; I46.9 Cardiac arrest, cause unspecified; E87.20 Acidosis, unspecified; Z95.1 Presence of aortocoronary bypass graft; I50.22 Chronic systolic (congestive) heart failure; I48.92 Unspecified atrial flutter; F10.229 Alcohol dependence with intoxication, unspecified; D69.6 Thrombocytopenia, unspecified; Z20.822 Contact with and (suspected) exposure to COVID-19; Y90.7 Blood alcohol level of 200-239 mg/100 ml; Z79.01 Long term (current) use of anticoagulants; Z79.899 Other long term (current) drug therapy; I25.10 Atherosclerotic heart disease of native coronary artery without angina pectoris; I11.0 Hypertensive heart disease with heart failure; I48.91 Unspecified atrial fibrillation; E78.5 Hyperlipidemia, unspecified; E83.42 Hypomagnesemia; N28.1 Cyst of kidney, acquired; Z79.02 Long term (current) use of antithrombotics/antiplatelets; E87.6 Hypokalemia; D53.9 Nutritional anemia, unspecified; I49.5 Sick sinus syndrome
CPT/HCPCS: 31720; 36415; 36569; 36600; 71045-TC; 76770-TC; 80048-TC; 80053-TC; 80061-TC; 80076-TC; 81001; 82140-TC; 82248-TC; 82728-TC; 82962-TC; 83540-TC; 83605-TC; 83735-TC; 83880; 84443-TC; 84484-TC; 85025-TC; 85610-TC; 86850-TC; 87040-TC; 92526; 92611-TC; 92950-TC; 93307-TC; 94002-TC; 94003-TC; 94799-TC; 97110-TC; 97112-TC; 97116-TC; 97530-TC; A4223; A6403; C9113; C9803; G0378; G0480; J0171; J0456; J0696; J1650; J2060; J2354; J2405; J2543; J2765; J3411; J3475; J3480; J3490; J7030; J7040; J7042; J7050; J7060